=== PATIENT | female | born 1990 | race American Indian/Alaskan Native ===

== ENCOUNTER 2021-07-30 15:27 | Emergency (ER) | payer OTHER ==
[2021-07-30 15:44] VITALS: BP 114/88
[2021-07-30] MEDS ORDERED: IBUPROFEN 600 MG TAB PO ONE (16:12)
[2021-07-30] MEDS ORDERED: traMADol 50 MG TAB PO ONE (16:12)
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
== END 2021-07-30 17:10 | disposition home or self-care (01) ==
LOC: ED 15:27
DX: S20.212A Contusion of left front wall of thorax, initial encounter (principal); V49.49XA Driver injured in collision with other motor vehicles in traffic accident, initial encounter; Y93.89 Activity, other specified; Y92.89 Other specified places as the place of occurrence of the external cause; Y99.8 Other external cause status
CPT/HCPCS: 99283